=== PATIENT | female | born 1980 | race Asian ===

== ENCOUNTER 2016-09-19 07:44 | Emergency (ER) | payer OTHER ==
[~2016-09-19] VITALS: Ht 175.3 cm; Wt 117.9 kg
[2016-09-19 08:32] VITALS: BP 136/70; TEMP 98.1
== END 2016-09-19 08:43 | disposition home or self-care (01) ==
LOC: ED 07:44
DX: H60.02 Abscess of left external ear (principal)
CPT/HCPCS: 96372; 99282; J0696

== ENCOUNTER 2016-11-28 17:15 | Emergency (ER) | payer OTHER ==
[~2016-11-28] VITALS: Ht 175.3 cm; Wt 104.3 kg
[2016-11-28 18:00] LABS: PLATELET COUNT 355 K/uL (152-353)
[2016-11-28 18:14] LABS: POTASSIUM 3.9 mmol/L (3.6-5.2); SODIUM 140 mmol/L (136-145)
[2016-11-28 18:16] LABS: PARTIAL THROMBOPLASTIN TIME 26.9 SECONDS (24.5-33.6)
[2016-11-28 20:33] VITALS: BP 145/86; TEMP 98.1
== END 2016-11-28 20:34 | disposition home or self-care (01) ==
LOC: ED 17:15
PROVIDERS: Emergency Medicine
DX: R41.82 Altered mental status, unspecified (principal); R41.0 Disorientation, unspecified
CPT/HCPCS: 36415; 80053; 80307; 80320; 81025; 82140; 82550; 84484; 85027; 85610; 85730; 93005; 96361; 96374; 96375; 99284; G0479; J0360; J1885

== ENCOUNTER 2017-05-11 20:31 | Observation (INO) | payer OTHER ==
[~2017-05-11] VITALS: Ht 175.3 cm; Wt 122.0 kg
[2017-05-11 20:40] VITALS: BP 188/110; TEMP 98.6
[2017-05-11 21:02] LABS: PLATELET COUNT 333 K/uL (152-353)
[2017-05-11 21:06] LABS: POTASSIUM 3.8 mmol/L (3.6-5.2); SODIUM 135 mmol/L (136-145)
[2017-05-12 02:56] VITALS: BP 138/99; TEMP 97.4; Ht 175.3 cm; Wt 122.0 kg
[2017-05-12 04:00] VITALS: BP 117/70; BP 138/99; TEMP 97.4; TEMP 98.3
--- NOTE | 2017-05-12 05:07 | NUR ---
05/12/17 0032 TO ROOM 1109 DX CHEST PAIN,BACK PAIN,ABDOMINAL PAIN.PT A/O SALINE LOCK TO RIGHT AC 20 GAUDGE INTACT.PT C/O OF BACK PAIN PT STATES SHE HAS A HX OF BACK PAIN ALSO HX OF ANXIETY.ORIENTED TO ROOM CALL LIGHT WITHIN REACH.CC
[2017-05-12 08:00] VITALS: BP 122/74; TEMP 97.65
[2017-05-12 12:00] VITALS: BP 114/70; TEMP 98.4
--- NOTE | 2017-05-12 17:00 | NUR ---
D/C ORDERS RECIEVED. IV D/C'D. PRESCRIIPTION GIVEN. PT INSTRUCTED TO MAKE F/U APT W PCP IN 3-5 DAYS. D/C INSTRUCTIONS GIVEN. PT HAS NO FUTHER QUESTIONS. PT WHEELED OUT VIA W/C AT THIS TIME. NO PROBLEMS NOTED.
== END 2017-05-12 17:20 | disposition home or self-care (01) ==
LOC: ED 20:31 → MED/SURG 23:00
PROVIDERS: ADMIT Family Medicine
DX: R07.89 Other chest pain (principal); E86.0 Dehydration; F41.8 Other specified anxiety disorders; M54.16 Radiculopathy, lumbar region; R06.09 Other forms of dyspnea; R51 Headache
CPT/HCPCS: 36415; 80053; 81000; 82550; 83605; 84484; 85027; 93005; 94664; 94760; 96365; 96366; 96367; 96372; 96375; 99220; 99284; G0378; J1650; J1885; J2270; J2550

== ENCOUNTER 2017-06-04 13:02 | Outpatient (CLI) | payer OTHER | END 2017-06-04 14:05 | disposition home or self-care (01) | LOC: RAD 13:02 | DX: K59.09 Other constipation (principal) | CPT/HCPCS: 74022 ==

== ENCOUNTER 2017-08-23 03:18 | Emergency (ER) | payer OTHER ==
[~2017-08-23] VITALS: Ht 175.3 cm; Wt 117.9 kg
[2017-08-23 04:11] LABS: PLATELET COUNT 330 K/uL (152-353)
[2017-08-23 04:30] LABS: POTASSIUM 3.9 mmol/L (3.6-5.2); SODIUM 136 mmol/L (136-145)
[2017-08-23 05:22] VITALS: BP 139/88; TEMP 98.1
== END 2017-08-23 05:28 | disposition home or self-care (01) ==
LOC: ED 03:18
DX: A08.39 Other viral enteritis (principal)
CPT/HCPCS: 36415; 80053; 81000; 82150; 83690; 85027; 96372; 99283; 99284; J1885

== ENCOUNTER 2017-11-19 22:15 | Emergency (ER) | payer OTHER ==
[~2017-11-19] VITALS: Ht 175.3 cm; Wt 122.5 kg
[2017-11-19 23:04] LABS: PLATELET COUNT 302 K/uL (152-353)
[2017-11-19 23:15] LABS: POTASSIUM 3.9 mmol/L (3.6-5.2)
[2017-11-19 23:53] VITALS: BP 138/78; TEMP 98.6
== END 2017-11-20 00:03 | disposition home or self-care (01) ==
LOC: ED 22:15
DX: M54.5 Low back pain (principal); M47.897 Other spondylosis, lumbosacral region
CPT/HCPCS: 36415; 80053; 81000; 85027; 96372; 99283; J1885

== ENCOUNTER 2018-01-20 15:34 | Emergency (ER) | payer OTHER ==
[~2018-01-20] VITALS: Ht 175.3 cm; Wt 120.2 kg
[2018-01-20 16:36] VITALS: BP 121/75; TEMP 98.4
== END 2018-01-20 16:41 | disposition home or self-care (01) ==
LOC: ED 15:34
DX: T63.301A Toxic effect of unspecified spider venom, accidental (unintentional), initial encounter (principal); Y92.89 Other specified places as the place of occurrence of the external cause
CPT/HCPCS: 96372; 99282; J0696

== ENCOUNTER 2018-09-29 12:34 | Outpatient (CLI) | payer OTHER | END 2018-09-29 12:39 | disposition short-term general hospital (02) | LOC: AMB 12:34 | DX: R07.89 Other chest pain (principal) | CPT/HCPCS: A0425; A0427 ==

== ENCOUNTER 2018-09-29 12:40 | Emergency (ER) | payer OTHER ==
[~2018-09-29] VITALS: Ht 177.8 cm; Wt 120.2 kg
[2018-09-29 12:40] VITALS: TEMP 98.1
[2018-09-29 13:33] LABS: PLATELET COUNT 335 K/uL (152-353)
[2018-09-29 13:42] LABS: POTASSIUM 3.7 mmol/L (3.6-5.2); SODIUM 138 mmol/L (136-145)
[2018-09-29 16:20] VITALS: BP 119/63
== END 2018-09-29 16:21 | disposition home or self-care (01) ==
LOC: ED 12:40
PROVIDERS: Internal Medicine
DX: M94.0 Chondrocostal junction syndrome [Tietze] (principal); R07.89 Other chest pain; R06.02 Shortness of breath; E11.9 Type 2 diabetes mellitus without complications
CPT/HCPCS: 80053; 81000; 82550; 84484; 85027; 85379; 93005; 96374; 99284; J1885

== ENCOUNTER 2018-11-12 09:40 | Outpatient (CLI) | payer OTHER | END 2018-11-12 21:05 | disposition home or self-care (01) | LOC: MAMMO 09:40 | DX: N64.4 Mastodynia (principal) ==

== ENCOUNTER 2019-10-28 09:40 | Outpatient (CLI) | payer OTHER | END 2019-10-28 19:15 | disposition home or self-care (01) | LOC: MAMMO 09:40 | DX: N64.9 Disorder of breast, unspecified (principal) | CPT/HCPCS: G0279 ==

== ENCOUNTER 2020-02-11 13:57 | Emergency (ER) | payer OTHER ==
[~2020-02-11] VITALS: Ht 177.8 cm; Wt 113.4 kg
[2020-02-11 15:03] LABS: PLATELET COUNT 360 K/uL (152-353)
[2020-02-11 15:06] LABS: SODIUM 141 mmol/L (136-145)
[2020-02-11 15:28] LABS: PARTIAL THROMBOPLASTIN TIME 26.5 SECONDS (24.5-33.6)
[2020-02-11 15:50] VITALS: TEMP 98.5
[2020-02-11 17:00] VITALS: BP 136/84
== END 2020-02-11 17:00 | disposition home or self-care (01) ==
LOC: ED 13:57
PROVIDERS: Emergency Medicine
DX: R50.9 Fever, unspecified (principal); D72.828 Other elevated white blood cell count; Z20.828 Contact with and (suspected) exposure to other viral communicable diseases
CPT/HCPCS: 80053; 82550; 83605; 84484; 85027; 85379; 85610; 85730; 87040; 87502; 87635; 87651; 93005; 96372; 99283; J0696; U0002

== ENCOUNTER 2020-05-25 10:21 | Emergency (ER) | payer OTHER ==
[~2020-05-25] VITALS: Ht 177.8 cm; Wt 113.4 kg
[2020-05-25 11:11] LABS: POTASSIUM 3.9 mmol/L (3.6-5.2); SODIUM 137 mmol/L (136-145)
[2020-05-25 11:39] LABS: PARTIAL THROMBOPLASTIN TIME 19.2 SECONDS (24.5-33.6)
[2020-05-25 11:56] LABS: PLATELET COUNT 298 K/uL (152-353)
[2020-05-25 14:00] VITALS: TEMP 98.1
[2020-05-25 15:15] VITALS: BP 136/96
== END 2020-05-25 15:15 | disposition home or self-care (01) ==
LOC: ED 10:21
PROVIDERS: Family Medicine
DX: G45.9 Transient cerebral ischemic attack, unspecified (principal); F41.8 Other specified anxiety disorders
CPT/HCPCS: 36415; 80053; 80307; 81000; 84484; 85027; 85379; 85610; 85730; 93005; 96374; 99284; J2060

== ENCOUNTER 2020-06-09 08:58 | Outpatient (CLI) | payer OTHER | END 2020-06-09 20:06 | disposition home or self-care (01) | LOC: MRI 08:58 | DX: R55 Syncope and collapse (principal) | CPT/HCPCS: A9576 ==

== ENCOUNTER 2020-07-13 18:59 | Emergency (ER) | payer OTHER ==
[~2020-07-13] VITALS: Ht 175.3 cm; Wt 117.9 kg
[2020-07-13] MEDS ORDERED: METF500T PO (19:48)
[2020-07-13 21:45] VITALS: BP 138/95; TEMP 98.6
== END 2020-07-13 21:45 | disposition home or self-care (01) ==
LOC: ED 18:59
DX: L29.8 Other pruritus (principal); T36.0X5A Adverse effect of penicillins, initial encounter; Y92.89 Other specified places as the place of occurrence of the external cause
CPT/HCPCS: 96372; 96374; 99284; J0171; J2930

== ENCOUNTER 2020-11-25 08:34 | Outpatient (CLI) | payer OTHER ==
[~2020-11-25 08:34] MED LIST: METF500T PO
== END 2020-11-25 22:13 | disposition home or self-care (01) ==
LOC: MAMMO 08:34
PROVIDERS: ATTEND Family Medicine
DX: Z12.31 Encounter for screening mammogram for malignant neoplasm of breast (principal)

== ENCOUNTER 2020-12-15 16:50 | Outpatient (CLI) | payer OTHER | END 2020-12-15 21:56 | disposition home or self-care (01) | LOC: RAD 16:50 | PROVIDERS: ATTEND Nurse Practitioner Primary Care | DX: M25.511 Pain in right shoulder (principal) ==

== ENCOUNTER 2021-03-03 09:18 | Outpatient (CLI) | payer OTHER | END 2021-03-03 19:08 | disposition home or self-care (01) | LOC: RAD 09:18 | PROVIDERS: ATTEND Nurse Practitioner Primary Care | DX: M25.511 Pain in right shoulder (principal) ==

== ENCOUNTER 2021-05-09 08:50 | Outpatient (CLI) | payer OTHER | END 2021-05-09 20:11 | disposition home or self-care (01) | LOC: RAD 08:50 | PROVIDERS: ATTEND Internal Medicine | DX: E11.9 Type 2 diabetes mellitus without complications (principal); G47.9 Sleep disorder, unspecified; S39.92XA Unspecified injury of lower back, initial encounter; F32.9 Major depressive disorder, single episode, unspecified ==

== ENCOUNTER 2021-05-12 13:01 | Outpatient (CLI) | payer OTHER ==
[~2021-05-12] VITALS: Ht 175.3 cm; Wt 117.9 kg
== END 2021-05-12 19:13 | disposition home or self-care (01) ==
LOC: INF 13:01
PROVIDERS: ATTEND Family Medicine
DX: Z23 Encounter for immunization (principal); U07.1 COVID-19
CPT/HCPCS: 96365; Q0239; Q0245

== ENCOUNTER 2021-08-10 18:59 | Outpatient (CLI) | payer OTHER ==
[2021-08-10 19:17] LABS: PLATELET COUNT 343 K/uL (152-353)
[2021-08-10 19:29] LABS: SODIUM 140 mmol/L (136-145)
== END 2021-08-10 19:48 | disposition home or self-care (01) ==
LOC: LABW 18:59
PROVIDERS: ATTEND Nurse Practitioner Primary Care
DX: R07.9 Chest pain, unspecified (principal)
CPT/HCPCS: 36415; 80053; 82550; 82553; 84484; 85027; 85379

== ENCOUNTER 2021-09-27 07:54 | Outpatient (CLI) | payer OTHER | END 2021-09-27 19:16 | disposition home or self-care (01) | LOC: NM 07:54 | PROVIDERS: ATTEND Nurse Practitioner Primary Care | DX: R07.9 Chest pain, unspecified (principal) | CPT/HCPCS: A9500 ==

== ENCOUNTER 2021-12-19 10:28 | Emergency (ER) | payer OTHER ==
[~2021-12-19] VITALS: Ht 175.3 cm; Wt 117.9 kg
[2021-12-19 11:40] LABS: PLATELET COUNT 386 K/uL (152-353)
[2021-12-19 14:30] VITALS: BP 132/94; TEMP 97.7
== END 2021-12-19 14:30 | disposition short-term general hospital (02) ==
LOC: ED 10:28
PROVIDERS: Emergency Medicine Emergency Medical Services
DX: M51.26 Other intervertebral disc displacement, lumbar region (principal); M54.59 Other low back pain
CPT/HCPCS: 36415; 85027; 85610; 85730; 96360; 96374; 96375; 99284; J1170; J2270; J2405

== ENCOUNTER 2022-05-21 12:35 | Emergency (ER) | payer OTHER ==
[~2022-05-21] VITALS: Ht 175.3 cm; Wt 113.4 kg
[2022-05-21 13:11] LABS: PLATELET COUNT 366 K/uL (152-353)
[2022-05-21 13:20] LABS: POTASSIUM 3.9 mmol/L (3.6-5.2); SODIUM 133 mmol/L (136-145)
[2022-05-21 14:17] VITALS: BP 136/98; TEMP 98.2
== END 2022-05-21 14:22 | disposition home or self-care (01) ==
LOC: ED 12:35
PROVIDERS: Family Medicine
DX: R07.89 Other chest pain (principal); R14.3 Flatulence; G89.29 Other chronic pain; M54.59 Other low back pain
CPT/HCPCS: 80053; 80307; 81002; 82550; 84484; 85027; 85610; 85730; 93005; 99282

== ENCOUNTER 2022-07-23 03:22 | Emergency (ER) | payer OTHER ==
[~2022-07-23] VITALS: Ht 175.3 cm; Wt 113.4 kg
[2022-07-23 03:30] VITALS: TEMP 98.2
[2022-07-23 04:27] LABS: SODIUM 138 mmol/L (136-145)
[2022-07-23 04:33] LABS: PLATELET COUNT 353 K/uL (152-353)
[2022-07-23 04:35] LABS: PARTIAL THROMBOPLASTIN TIME 29.4 SECONDS (24.5-33.6)
[2022-07-23 06:22] VITALS: BP 125/91
== END 2022-07-23 06:24 | disposition home or self-care (01) ==
LOC: ED 03:22
PROVIDERS: Family Medicine
DX: R07.89 Other chest pain (principal); R20.2 Paresthesia of skin; M54.89 Other dorsalgia; Z98.890 Other specified postprocedural states
CPT/HCPCS: 36415; 80053; 80307; 81002; 82550; 84484; 85027; 85610; 85730; 93005; 99283

== ENCOUNTER 2022-12-19 09:02 | Outpatient (CLI) | payer OTHER | END 2022-12-19 19:19 | disposition home or self-care (01) | LOC: MAMMO 09:02 | PROVIDERS: ATTEND Family Medicine | DX: Z12.31 Encounter for screening mammogram for malignant neoplasm of breast (principal) ==

== ENCOUNTER 2023-02-07 10:32 | Outpatient (CLI) | payer OTHER | END 2023-02-07 18:53 | disposition home or self-care (01) | LOC: MAMMO 10:32 | PROVIDERS: ATTEND Nurse Practitioner Family | DX: N64.4 Mastodynia (principal) | CPT/HCPCS: G0279 ==